=== PATIENT | male | born 1955 | race Caucasian/White ===

== ENCOUNTER 2017-05-19 15:05 | Emergency (ER) | payer OTHER ==
[2017-05-19 15:19] VITALS: BP 114/65
--- NOTE | 2017-05-19 16:30 | UC ---
HPI Wound/Suture Re-check - HPI Summary HPI Summary: This is a 61 yo gentleman with no known major medical problems who presented with a R moyer wound that he sustained ~5days ago. Patient was moving a large box that scraped his moyer and caused the wound. He has been keeping it wrapped. He reports no pain, fevers, chills or generalized illness. Patient's son inspected the wound today and noticed increasing redness and brought him here for evaluation. - History Of Current Complaint Chief Complaint: UCLowerExtremity Stated Complaint: LEG LACERATION-POSSIBLE INFECTION - Allergies/Home Medications Allergies/Adverse Reactions: Allergies Allergy/AdvReac Type Severity Reaction Status Date / Time No Known Allergies Allergy Verified 02/12/13 10:11 PMH/Surg Hx/FS Hx/Imm Hx Previously Healthy: Yes - gout - Surgical History Surgical History: Yes Surgery Procedure, Year, and Place: lump from lymph node removed - Family History Known Family History: Positive: None - Social History Alcohol Use: None Substance Use Type: None Smoking Status (MU): Never Smoked Tobacco Review of Systems Constitutional: Negative Skin: Other - laceration R moyer Eyes: Negative ENT: Negative Respiratory: Negative Cardiovascular: Negative Gastrointestinal: Negative Genitourinary: Negative Motor: Negative Neurovascular: Negative Musculoskeletal: Negative Neurological: Negative Psychological: Negative All Other Systems Reviewed And Are Negative: Yes Physical Exam Triage Information Reviewed: Yes Appearance: Well-Appearing, Other: - poor Mongolian, accompanied by his son 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 Negative: Crackles, Rhonchi, Stridor, Wheezing Cardiovascular: Positive: RRR, No Murmur Skin: Positive: Other - superficial laceration over R anterior lower leg. Some purulent appearing slough and surrounding erythema. No induration of fluctuance. Minimal surrounding pain. Course/Dx - Course Course Of Treatment: This is a 61 yo gentleman with a R moyer laceration ~5d ago. There is evidence of associated infection. Recommend Keflex x7d with daily dressing changes - Differential Dx - Laceration/Wound Differential Diagnoses: Abscess, Cellulitis Provider Diagnoses: 1. R anterior leg wound with associated cellulitis Discharge - Discharge Plan Condition: Stable Disposition: HOME Prescriptions: Cephalexin CAP* [Keflex CAP*] 500 mg PO TID #21 cap Patient Education Materials: Wound Infection (ED) Referrals: Agustin Denise MD [Primary Care Provider] - 7 Days Additional Instructions: Activity: As tolerated Instructions: 1. Please take antibiotic as directed 2. Keep the wound clean and dry, change dressing daily 3. Apply a thin layer of bacitracin to the wound and cover with dry gauze and secure 4. Please follow up with your primary care provider to ensure proper healing
== END 2017-05-19 16:30 | disposition home or self-care (01) ==
LOC: UCEAST 15:05
DX: S81.811A Laceration without foreign body, right lower leg, initial encounter (principal); L03.115 Cellulitis of right lower limb; W22.8XXA Striking against or struck by other objects, initial encounter; Y93.9 Activity, unspecified; Y92.9 Unspecified place or not applicable; Y99.9 Unspecified external cause status
CPT/HCPCS: 99202; G0463

== ENCOUNTER 2017-11-26 09:19 | Day surgery (SDC) | payer OTHER ==
--- NOTE | 2017-11-23 18:51 | HP ---
CC: Dr. Denise * HISTORY AND PHYSICAL: DATE OF PLANNED ADMISSION AND SURGERY: 11/26/17 HISTORY OF PRESENT ILLNESS: Mr. Arreaga is a 61-year-old white male who is admitted with recurrent episodes of gross hematuria and a 2 cm bladder tumor, for cystoscopy and excisional biopsy. Mr. Arreaga was referred by Dr. eDnise because of recurrent episodes of gross painless hematuria that started about 1 month ago. The episodes were totally asymptomatic, not associated with any flank pain or renal symptoms. He did not notice any changes in his voiding. He did not have any frequency, urgency or burning on urination. He was worked up with a noncontrast CT of the abdomen and pelvis, which was normal. He was then referred to my office. He had a cystoscopy, which showed a 2 cm bladder tumor arising just cephalad to the right ureteral orifice. The tumor had the appearance of a high-grade transitional cell carcinoma. To rule out any upper tract urothelial lesions, patient had a CT urogram. This study showed the bladder mass. There were no other lesions seen, in particular no hydronephrosis and no abnormal filling defects in the renal pelvises or in the ureters. The bladder mass seemed confined to the bladder without evidence of extravesical extension or lymphadenopathy. PAST MEDICAL HISTORY AND SYSTEM REVIEW: He is diabetic, maintained on metformin 500 mg twice a day. He has history of gout, on allopurinol 100 mg twice a day. He gives past history of heavy smoking of 1 to 2 packs per day for 20 years but he stopped 20 years ago. He denies any COPD symptoms. ALLERGIES: He denies any allergies to medications. PHYSICAL EXAMINATION GENERAL: Pleasant white male, who looks older than his age. VITAL SIGNS: Blood pressure 140/70, pulse of 80. LUNGS: Clear. HEART: Regular and rhythmic, no murmurs. ABDOMEN: Soft. No masses, no tenderness and no CVA tenderness. EXTERNAL GENITALIA: Normal. RECTAL: Shows a slightly enlarged but non-suspicious prostate. EXTREMITIES: Show no edema. IMPRESSION: 1. Recurrent episodes of gross painless hematuria, and a 1.5 to 2 cm tumor rising from the right base of the bladder. Normal upper tracts by CT urogram. 2. Diabetes mellitus. 3. History of gout. 4. Past history of chronic smoking. PLAN: Plan is for cystoscopy and excisional biopsy of the bladder tumor. He will need additional treatment depending upon the pathology. [id number]/[facility] #: [id number] [facility]
[~2017-11-26 09:19] MED LIST: Buffered Lidocaine 0.9% SYRIN* 5 ML/SYR SYRINGE INTRADERM ONE; Famotidine IV* 10 MG/ML 2 ML (20 mg) IV ONE
[2017-11-26] MEDS ORDERED: Famotidine IV* 10 MG/ML 2 ML (20 mg) ONE (09:29)
[2017-11-26] MEDS ORDERED: cefTRIAXone(*) 2 GM ADDV.VIAL IVPB ONE (09:29)
[2017-11-26] MEDS ORDERED: Midazolam* 1 MG/ML 2 ML VIAL (2 MG) ONE (09:40)
[2017-11-26] MEDS ORDERED: fentaNYL* 50 MCG/ML 2 ML VIAL (100 MCG VIAL) ONE (09:40)
[2017-11-26] MEDS ORDERED: Dexamethasone IV* 4 MG/ML 1 ML (4 MG) ONE (09:49)
[2017-11-26] MEDS ORDERED: Ketorolac INJ* 30 MG/ML 1 ML VIAL ONE (09:49)
[2017-11-26] MEDS ORDERED: Lidocaine 2% PF * 5 ML VIAL ONE (09:49)
[2017-11-26] MEDS ORDERED: Propofol* 10 MG/ML 20 ML BTL IV PUSH ONE (09:49)
[2017-11-26] MEDS ORDERED: Ondansetron INJ* 2 MG/ML VIAL ONE (09:49)
[2017-11-26] MEDS ORDERED: DiMENhydriNATE IV* 50 MG/ML VIAL ONE (09:49)
[2017-11-26] MEDS ORDERED: oxyCODONE TAB* 5 MG TAB PO PRN (11:31)
[2017-11-26] MEDS ORDERED: HYDROmorphone INJ* 1 MG/ML CARPUJECT SYRINGE IV PRN (11:31)
[2017-11-26] MEDS ORDERED: DiMENhydriNATE IV* 50 MG/ML VIAL IV PUSH PRN (11:31)
[2017-11-26] MEDS ORDERED: Naloxone* 0.4 MG/ML 1 ML VIAL IV PRN (11:31)
[2017-11-26] MEDS ORDERED: Acetaminophen TAB* 325 MG PO PRN (11:31)
[2017-11-26] MEDS ORDERED: mitoMYcin PWD* 40 MG in Sterile Water for Inj* 40 ML IRRIGATION ONE (12:30)
[2017-11-26 14:59] VITALS: BP 151/65
--- NOTE | 2017-11-27 00:27 | OP ---
CC: Dr. Denise OPERATIVE REPORT: DATE OF OPERATION: 11/26/16 DATE OF : 53 SURGEON: Fer Villalobos MD ANESTHESIOLOGIST: Dr. Nunez. ANESTHESIA: General. PRE-OP DIAGNOSIS: Bladder tumor. POST-OP DIAGNOSIS: Bladder tumor. OPERATIVE PROCEDURE: 1. Cystoscopy. 2. Excisional biopsies and fulguration of tumor of right base of bladder (2 cm) . INDICATION FOR PROCEDURE: Mr. Arreaga is a 61-year-old white male who gives a past history of chronic heavy smoking and who presented with recurrent episodes of total gross painless hematuria. Cystoscopy showed a 2 cm tumor in the right base of the bladder. CT urogram showed normal collecting systems and ureters. The patient is admitted for excision of the above tumor. PATHOLOGY AT CYSTOSCOPY: The penile and bulbar urethrae looked normal. The prostatic urethra measured about 2.5 cm in length and there was minimal obstruction by prostate enlargement. Examination of the bladder showed a 2 cm papillary tumor arising from the right base of the bladder just cephalad to the right ureteral orifice. There were similar small tumors adjacent to the main tumor.The orifice looked normal and was not involved by the tumor. The tumors had the appearance of a medium grade transitional cell carcinoma. Careful inspection of the rest of the bladder showed no other lesions. No other papillary tumors seen, and no changes to suggest carcinoma in situ. The efflux from both ureteral orifices was clear. DESCRIPTION OF PROCEDURE: After successful general anesthesia, the patient was placed in the lithotomy position and was prepped and draped for a cystoscopy. Cystoscopy was performed. The bladder was carefully inspected and the above findings were noted. Using the rigid biopsy forceps, the above tumors were excised down to muscle. The specimens were sent for pathology. The bed of the tumor and the surrounding tissue were thoroughly fulgurated with the Bugbee electrode achieving very good hemostasis. At the completion of the procedure, there were no residual tumor seen. There was very good hemostasis. There was no evidence of any bladder perforation. The right ureteral orifice was intact. The scope was then removed and a size 16-[place] Fox catheter was passed inside the bladder and the balloon inflated with 10 cc of water. The plan is to give the patient 1 dose of intravesical mitomycin-C in the recovery room. [id number]/[facility] #: [id number] [facility]
== END 2017-11-26 14:59 | disposition home or self-care (01) ==
LOC: OR 09:19
PROVIDERS: ATTEND Urology
DX: C67.9 Malignant neoplasm of bladder, unspecified (principal); E11.9 Type 2 diabetes mellitus without complications; Z79.84 Long term (current) use of oral hypoglycemic drugs; Z87.891 Personal history of nicotine dependence; R31.9 Hematuria, unspecified
CPT/HCPCS: 88305; J0696; J1100; J1240; J1885; J2250; J2405; J2704; J3010; J9280

== ENCOUNTER 2018-12-10 20:33 | Emergency (ER) | payer OTHER ==
[2018-12-10 20:50] VITALS: BP 146/65
[2018-12-10] MEDS ORDERED: Ibuprofen TAB* 600 MG PO ONE (21:02)
--- NOTE | 2018-12-10 21:06 | UC ---
FLU HPI - HPI Summary HPI Summary: 2 DAYS OF COUGH, CONGESTION, FATIGUE, BODY ACHES AND WEAKNESS. HAD SOME MILD NAUSEA THIS MORNING. FOUND TO HAVE A FEVER IN THE UC BUT PATIENT DID NOT MEASURE HIS TEMPERATURE AT HOME. NO FLU SHOT THIS SEASON. - History of Current Complaint Chief Complaint: UCRespiratory Stated Complaint: COUGH Time Seen by Provider: 12/10/18 20:42 Hx Obtained From: Patient Onset/Duration: Gradual Onset, Lasting Days, Still Present Severity Currently: Moderate Severity Initially: Moderate Pain Intensity: 0 Pain Scale Used: 0-10 Numeric Associated Signs & Symptoms: Positive: Fever, Myalgia, Cough, Nasal Congestion - Allergy/Home Medications Allergies/Adverse Reactions: Allergies Allergy/AdvReac Type Severity Reaction Status Date / Time No Known Allergies Allergy Verified 11/26/17 09:54 Home Medications: Home Medications Gabapentin [Neurontin] 12/10/18 [History] PMH/Surg Hx/FS Hx/Imm Hx - Additional Past Medical History Additional PMH: TRIGEMINAL NEURALGIA Endocrine History: Diabetes - Surgical History Surgical History: None Surgery Procedure, Year, and Place: lump from lymph node removed - Family History Known Family History: Positive: None - Social History Alcohol Use: None Substance Use Type: None Smoking Status (MU): Never Smoked Tobacco Amount Used/How Often: 1ppd When Did the Patient Quit Smoking/Using Tobacco: quit 32 years ago Review of Systems All Other Systems Reviewed And Are Negative: Yes Constitutional: Positive: Fever, Chills, Fatigue ENT: Positive: Nasal Discharge Respiratory: Positive: Cough Cardiovascular: Positive: Negative Gastrointestinal: Positive: Nausea Musculoskeletal: Positive: Myalgia Neurological: Negative: Headache Physical Exam Triage Information Reviewed: Yes Appearance: No Pain Distress, Well-Nourished, Ill-Appearing - MILD Vital Signs: Initial Vital Signs Temp 101.2 F 12/10/18 20:40 Pulse 82 12/10/18 20:40 Resp 16 12/10/18 20:40 BP 146/65 12/10/18 20:40 Pulse Ox 96 12/10/18 20:40 Laboratory Tests 12/10/18 21:09 Influenza A (Rapid) Positive A Vital Signs Reviewed: Yes Eyes: Positive: Conjunctiva Clear ENT: Positive: Hearing grossly normal, Pharynx normal, TMs normal Neck: Positive: Supple, Nontender, No Lymphadenopathy Respiratory Exam: Normal Cardiovascular Exam: Normal Abdomen Description: Positive: Nontender, Soft Musculoskeletal: Positive: No Edema Neurological: Positive: Alert Psychological: Positive: Age Appropriate Behavior Skin: Negative: Rashes Flu Course/Dx - Differential Dx/Diagnosis Provider Diagnosis: Influenza A Discharge - Sign-Out/Discharge Documenting (check all that apply): Patient Departure All imaging exams completed and their final reports reviewed: No Studies - Discharge Plan Condition: Stable Disposition: HOME Prescriptions: Benzonatate CAP* [Tessalon CAP*] 1 - 2 cap PO TID PRN #30 cap PRN Reason: Cough Oseltamivir CAP* [Tamiflu CAP*] 75 mg PO BID #8 cap Patient Education Materials: Influenza (ED) Referrals: Agustin Denise MD [Primary Care Provider] - If Needed Additional Instructions: SWAB POSITIVE FOR INFLUENZA A. TAMIFLU TWICE DAILY FOR 5 DAYS. OTC MEDS NEEDED FOR FEVER, BODY ACHES. STAY WELL HYDRATED AND RESTED. SEEK FOLLOW-UP IF YOU ARE NOT IMPROVING EXPECTED. - Billing Disposition and Condition Condition: STABLE Disposition: Home
[2018-12-10 21:14] LABS: Influenza A Molecular POSITIVE (Negative)
[2018-12-10] MEDS ORDERED: Oseltamivir CAP* 75 MG CAP PO ONE ×2 (21:20→21:21)
== END 2018-12-10 21:49 | disposition home or self-care (01) ==
LOC: UCEAST 20:33
DX: J10.1 Influenza due to other identified influenza virus with other respiratory manifestations (principal); Z87.891 Personal history of nicotine dependence
CPT/HCPCS: 99213; A9270-GY; G0463

== ENCOUNTER 2019-02-26 13:16 | Emergency (ER) | payer OTHER ==
[2019-02-26 14:22] VITALS: BP 166/70
[2019-02-26] MEDS ORDERED: Ketorolac INJ* 60 MG/2 ML VIAL IM ONE (14:55)
--- NOTE | 2019-02-26 15:04 | UC ---
General HPI - HPI Summary HPI Summary: Patient had recent dental work and has had nerve pain along the left upper jaw line and cheek since the procedure. he was placed on gabapentin 300 mg tid and had begun to decrease the dose when the pain returned, he was advised to return to TID 2 days ago. 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 bladder ca surgery - Family History Known Family History: Positive: Hypertension - Social History Alcohol Use: None Substance Use Type: None Smoking Status (MU): Never Smoked Tobacco Amount Used/How Often: 1ppd When Did the Patient Quit Smoking/Using Tobacco: quit 32 years ago Review of Systems All Other Systems Reviewed And Are Negative: Yes ENT: Positive: Dental Pain, Other - facial pain Is Patient Immunocompromised?: No Physical Exam Triage Information Reviewed: Yes Appearance: Well-Appearing, Well-Nourished, Pain Distress Vital Signs: Initial Vital Signs Temp 99.1 F 02/26/19 14:04 Pulse 62 02/26/19 14:04 Resp 18 02/26/19 14:04 BP 166/70 02/26/19 14:04 Pulse Ox 97 02/26/19 14:04 Vital Signs Reviewed: Yes ENT: Positive: Dental tenderness, Sinus tenderness Dental: Positive: Other: - painful to open mouth, unable to chew Neck exam: Normal Respiratory Exam: Normal Cardiovascular Exam: Normal Abdominal Exam: Normal Bowel Sounds: Positive: Present Musculoskeletal Exam: Normal Neurological: Positive: Other: - sensitive to light touch on left side of face Psychological Exam: Normal Skin Exam: Normal Course/Dx - Course Course Of Treatment: hx obtained, exam performed ,meds reviewed, treated for pain and recommend follow up with his PCP - Diagnoses 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 take the medication as prescribed. 2. Continue to take the gabapentin three times a day 3. Do not take any ibuprofen products for the next 8 hours. 4. I have given [place] for sever pain to get the pain back under control 5. Take the prednisone daily for the next 5 days 6. Follow up with your doctor if pain persists. - Billing Disposition and Condition Condition: STABLE Disposition: Home
== END 2019-02-26 15:31 | disposition home or self-care (01) ==
LOC: UCEAST 13:16
DX: T81.89XA Other complications of procedures, not elsewhere classified, initial encounter (principal); G51.8 Other disorders of facial nerve; Y83.9 Surgical procedure, unspecified as the cause of abnormal reaction of the patient, or of later complication, without mention of misadventure at the time of the procedure; Y92.9 Unspecified place or not applicable
CPT/HCPCS: 96372; 99212; G0463; J1885

== ENCOUNTER 2019-05-12 18:14 | Emergency (ER) | payer OTHER ==
[2019-05-12 19:31] VITALS: BP 151/68
--- NOTE | 2019-05-12 19:46 | UC ---
Back Pain HPI - HPI Summary HPI Summary: 63-year-old male with some left lower back pain and into his left buttock and down his leg. He states that he was lifting something today and he felt pole. He does have a history of sciatica. - History of Current Complaint Chief Complaint: UCBackPain Stated Complaint: BACK PAIN Time Seen by Provider: 05/12/19 19:38 Hx Obtained From: Patient, Family/Athletics Director Onset/Duration: Sudden Onset Timing: Constant Severity Initially: Moderate Severity Currently: Mild Pain Intensity: 8 Character: Sharp - Goes from left lower back down into buttock and left leg., Dull, Aching Aggravating Factor(s): Movement, Lifting, Bending Alleviating Factor(s): Rest Associated Signs And Symptoms: Positive: Negative - Allergies/Home Medications Allergies/Adverse Reactions: Allergies Allergy/AdvReac Type Severity Reaction Status Date / Time No Known Allergies Allergy Verified 05/12/19 19:24 PMH/Surg Hx/FS Hx/Imm Hx Previously Healthy: Yes Endocrine History: Diabetes Respiratory History: Asthma - Surgical History Surgical History: Yes Surgery Procedure, Year, and Place: lump from lymph node removed. bladder ca surgery - Family History Known Family History: Positive: Hypertension - Social History Alcohol Use: None Substance Use Type: None Smoking Status (MU): Former Smoker Amount Used/How Often: 1ppd When Did the Patient Quit Smoking/Using Tobacco: quit 32 years ago Review of Systems All Other Systems Reviewed And Are Negative: Yes Motor: Positive: Negative Neurovascular: Positive: Negative Musculoskeletal: Positive: Negative, Other: - Patient states the pain is in his left lower back into his buttock and radiates down his leg. Neurological: Positive: Negative Psychological: Positive: Negative Is Patient Immunocompromised?: No Physical Exam Triage Information Reviewed: Yes Appearance: Well-Appearing, No Pain Distress, Well-Nourished Vital Signs: Initial Vital Signs Temp 97.8 F 05/12/19 19:18 Pulse 63 05/12/19 19:18 Resp 18 05/12/19 19:18 BP 151/68 05/12/19 19:18 Pulse Ox 96 05/12/19 19:18 Vital Signs Reviewed: Yes Respiratory: Positive: Lungs clear, Normal breath sounds, No respiratory distress, No accessory muscle use Cardiovascular: Positive: RRR, No Murmur, Pulses Normal, Brisk Capillary Refill Abdomen Description: Positive: Nontender, No Organomegaly, Soft Bowel Sounds: Positive: Present Musculoskeletal: Positive: Strength Intact, ROM Intact, Other: - Positive straight leg raise on the left. Neurological: Positive: Alert, Muscle Tone Normal Psychological Exam: Normal Skin Exam: Normal Back Pain Course/Dx - Course Course Of Treatment: The patient has a history of sciatica and I believe due to his lifting an object in feeling the pain he has sciatica again. He is to avoid movements that cause pain. He may take Motrin for pain and he may apply ice or heat to the sore area. He is to follow-up with his primary care provider if no improvement in 3 or 4 days. - Differential Dx/Diagnosis Provider Diagnosis: Left sided sciatica Discharge - Sign-Out/Discharge Documenting (check all that apply): Patient Departure All imaging exams completed and their final reports reviewed: No Studies - Discharge Plan Condition: Fair Disposition: HOME Patient Education Materials: Sciatica (ED), Upper Respiratory Infection (DC) Referrals: Agustin Denise MD [Primary Care Provider] - Additional Instructions: Apply heat or ice to the sore areas. May take Motrin for pain. Avoid movements that cause pain. Follow-up with your primary care provider if no improvement in 3 or 4 days. - Billing Disposition and Condition Condition: FAIR Disposition: Home
== END 2019-05-12 20:41 | disposition home or self-care (01) ==
LOC: UCEAST 18:14
DX: M54.42 Lumbago with sciatica, left side (principal); E11.9 Type 2 diabetes mellitus without complications; J45.909 Unspecified asthma, uncomplicated; Z87.891 Personal history of nicotine dependence; Z85.51 Personal history of malignant neoplasm of bladder
CPT/HCPCS: 71046; 99212; G0463

== ENCOUNTER 2023-07-20 18:59 | Inpatient (IN) ==
[2023-07-20 19:57] LABS: PCO2 Arterial 42 mmHg (35-45); PO2 Arterial 82 mmHg (80-100)
[2023-07-20] MEDS ORDERED: Dexamethasone IV 4 MG/ML VIAL 1 ml VIAL IV SLOW PU ONE (19:59)
[2023-07-20 20:02] LABS: ABS Lymphocytes 0.2 10^3/uL (1.0-4.8); ABS Monocytes 0.5 10^3/uL (0.0-1.1); ABS Neutrophils 8.8 10^3/uL (1.5-7.6); ABS Nucleated RBC 0.01 10^3/ul; Hematocrit 33.8 % (38-53); Hemoglobin 11.6 g/dL (13.2-16.3); Lymphocyte % 2.2 %; Mean Corpuscular Hemoglobin 28.4 pg (27-33); Mean Corpuscular Hgb Conc 34.2 g/dL (31-36); Mean Platelet Volume 8.6 fL (7.5-11.2); Nucleated Red Blood Cells % 0.1 /100 WBC (0.0-0.4); Platelet Count 239 10^3/uL (150-450); Red Blood Count 4.07 10^6/uL (4.06-5.63); Red Cell Distribution Width 15.1 % (12-17); White Blood Count 9.6 10^3/uL (3.6-10.2)
[2023-07-20 20:24] LABS: Albumin 3.9 g/dL (3.2-5.2); Calcium 8.5 mg/dL (8.6-10.3); Potassium 4.2 mmol/L (3.5-5.0); Total Bilirubin 0.5 mg/dL (0.2-1.0)
[2023-07-20 20:30] LABS: Albumin/Globulin Ratio 1.3 (1-3); C Reactive Protein 50.68 mg/L (<8.01); Creatinine, Serum 1.09 mg/dL (0.67-1.17); Globulin 2.9 g/dL (2-4); Total Protein 6.8 g/dL (6.4-8.9); eGFR CKD-EPI 73.9 (>60)
[2023-07-20] MEDS ORDERED: Iodixanol (CONTRAST) 320 MG/ML 100 ML SDV IV ONE (20:57)
[2023-07-20 21:14] LABS: INR 1.15 (0.83-1.13)
[2023-07-20 21:34] LABS: High Sensitivity Troponin 1 Hr 2415 pg/mL (<20)
[2023-07-20] MEDS ORDERED: Heparin DRIP 25,000 UNITS BAG 25,000 UNITS/500 ML BAG IV SCH (23:00)
[2023-07-20] MEDS ORDERED: Heparin 5000 UNITS/ML 1 mL VIAL IV SCH (23:00)
[2023-07-20] MEDS ORDERED: Remdesivir 100 mg Vial 200 MG in NS 0.9% 250 ml 210 ML IV ONE (23:52)
[2023-07-20] MEDS ORDERED: Ondansetron 4 mg VIAL 2 MG/ML 2 ml VIAL IV PRN (23:52)
[2023-07-20] MEDS ORDERED: Dextrose 50% Syringe 50 ml 25 GM/50 ML SYRINGE IV PUSH PRN ×2 (23:52)
[2023-07-21 00:27] LABS: INR 1.17 (0.83-1.13)
[2023-07-21 00:35] LABS: Albumin 3.8 g/dL (3.2-5.2); Calcium 8.5 mg/dL (8.6-10.3); Potassium 4.7 mmol/L (3.5-5.0); Total Bilirubin 0.4 mg/dL (0.2-1.0)
[2023-07-21 00:41] LABS: Albumin/Globulin Ratio 1.3 (1-3); Creatinine, Serum 1.09 mg/dL (0.67-1.17); Total Protein 6.8 g/dL (6.4-8.9); eGFR CKD-EPI 73.9 (>60)
[2023-07-21] MEDS ORDERED: Enoxaparin 80 MG/0.8 ML SYR SUBCUT SCH (01:00)
[2023-07-21 04:46] LABS: ABS Lymphocytes 0.4 10^3/uL (1.0-4.8); ABS Monocytes 0.5 10^3/uL (0.0-1.1); ABS Neutrophils 8.5 10^3/uL (1.5-7.6); ABS Nucleated RBC 0.01 10^3/ul; Hematocrit 33.1 % (38-53); Hemoglobin 11.5 g/dL (13.2-16.3); Mean Corpuscular Hemoglobin 28.5 pg (27-33); Mean Corpuscular Hgb Conc 34.6 g/dL (31-36); Mean Corpuscular Volume 82.3 fL (80-97); Mean Platelet Volume 8.8 fL (7.5-11.2); Nucleated Red Blood Cells % 0.1 /100 WBC (0.0-0.4); Platelet Count 221 10^3/uL (150-450); Red Blood Count 4.03 10^6/uL (4.06-5.63); Red Cell Distribution Width 14.8 % (12-17); White Blood Count 9.4 10^3/uL (3.6-10.2)
[2023-07-21 04:47] LABS: Urine Appearance Cloudy; Urine Bilirubin Negative (Negative); Urine Blood 2+ (Negative); Urine Color Yellow; Urine Glucose Negative (Negative); Urine Ketones Negative (Negative); Urine Nitrite Negative (Negative); Urine Protein 2+(100 mg/dL) (Negative); Urine Specific Gravity 1.048 (1.002-1.030); Urine Urobilinogen Negative (Negative)
[2023-07-21 04:51] LABS: INR 1.18 (0.83-1.13)
[2023-07-21 04:52] LABS: Urine Bacteria Absent (Absent); Urine Red Blood Cell 1+(3-5/hpf) (Absent); Urine White Blood Cell Trace(0-5/hpf) (Absent); Urine Yeast Present (Absent)
[2023-07-21 05:04] LABS: Albumin 3.5 g/dL (3.2-5.2); Albumin/Globulin Ratio 1.2 (1-3); Calcium 8.1 mg/dL (8.6-10.3); Creatinine, Serum 1.02 mg/dL (0.67-1.17); Globulin 2.9 g/dL (2-4); Magnesium 1.8 mg/dL (1.9-2.7); Potassium 4.7 mmol/L (3.5-5.0); Total Bilirubin 0.3 mg/dL (0.2-1.0); Total Protein 6.4 g/dL (6.4-8.9); eGFR CKD-EPI 80.1 (>60)
[2023-07-21] MEDS ORDERED: Magnesium Sulfate IV 1GM/100ML 1 GM/100 ML BAG IV ONE ×2 (05:48→06:38)
[2023-07-21 07:34] LABS: High Sensitivity Troponin 1 Hr 5894 pg/mL (<20)
[2023-07-21] MEDS: Dexamethasone IV 4 MG/ML VIAL 1 ml VIAL IV SLOW PU SCH (08:51)
[2023-07-21] MEDS ORDERED: Sulfur Hexaflouride MICROSPHR 25 MG VIAL ONE (08:51)
[2023-07-21] MEDS: Aspirin EC 81 mg TAB.EC (enteric coated) PO SCH (09:18)
[2023-07-21] MEDS: carBAMazepine ER 100mg TAB PO SCH ×2 (09:19→21:08)
[2023-07-21] MEDS: Famotidine IV 10 MG/ML 2 ml VIAL (20 mg) IV SLOW PU SCH ×2 (11:14→21:09)
[2023-07-21] MEDS ORDERED: Enoxaparin 100 MG/ML SYR SUBCUT SCH (18:00)
[2023-07-21] MEDS: Remdesivir 100 mg Vial 100 MG in NS 0.9% 250 ml 230 ML IV SCH (21:50)
[2023-07-22 06:51] LABS: Hematocrit 33.7 % (38-53); Hemoglobin 11.3 g/dL (13.2-16.3); Mean Corpuscular Hemoglobin 28.2 pg (27-33); Mean Corpuscular Hgb Conc 33.7 g/dL (31-36); Mean Corpuscular Volume 83.7 fL (80-97); Mean Platelet Volume 8.8 fL (7.5-11.2); Platelet Count 224 10^3/uL (150-450); Red Blood Count 4.02 10^6/uL (4.06-5.63); White Blood Count 10.2 10^3/uL (3.6-10.2)
[2023-07-22 06:53] LABS: INR 1.12 (0.83-1.13)
[2023-07-22 07:06] LABS: Albumin 3.8 g/dL (3.2-5.2); Albumin/Globulin Ratio 1.4 (1-3); Calcium 8.5 mg/dL (8.6-10.3); Creatinine, Serum 0.93 mg/dL (0.67-1.17); Globulin 2.8 g/dL (2-4); HDL Cholesterol 50.4 mg/dL; Potassium 4.2 mmol/L (3.5-5.0); Total Bilirubin 0.3 mg/dL (0.2-1.0); Total Protein 6.6 g/dL (6.4-8.9); eGFR CKD-EPI 89.4 (>60)
[2023-07-22] MEDS: Aspirin EC 81 mg TAB.EC (enteric coated) PO SCH (08:56)
[2023-07-22] MEDS: Dexamethasone IV 4 MG/ML VIAL 1 ml VIAL IV SLOW PU SCH (08:58)
[2023-07-22] MEDS: carBAMazepine ER 100mg TAB PO SCH ×2 (08:59→21:30)
[2023-07-22] MEDS: Famotidine IV 10 MG/ML 2 ml VIAL (20 mg) IV SLOW PU SCH (08:59)
[2023-07-22] MEDS ORDERED: Lactated Ringers 1000 ml BAG 1,000 ML IV SCH (09:00)
[2023-07-22] MEDS ORDERED: Influenza vaccine *QUAD* *2023-24* 0.5 ML SYRINGE IM ONE (09:00)
[2023-07-22] MEDS: Lactated Ringers 1000 ml BAG 1,000 ML IV SCH ×2 (09:06→17:47)
[2023-07-22 09:17] LABS: Magnesium 2.2 mg/dL (1.9-2.7)
[2023-07-22] MEDS ORDERED: Enoxaparin 100 MG/ML SYR SUBCUT ONE (12:46)
[2023-07-22] MEDS ORDERED: Heparin DRIP 25,000 UNITS BAG 25,000 UNITS/500 ML BAG IV SCH (13:00)
[2023-07-22 14:27] LABS: ABS Lymphocytes 0.3 10^3/uL (1.0-4.8); ABS Monocytes 0.3 10^3/uL (0.0-1.1); ABS Neutrophils 8.2 10^3/uL (1.5-7.6); Hematocrit 33.7 % (38-53); Hemoglobin 11.4 g/dL (13.2-16.3); Lymphocyte % 3.1 %; Mean Corpuscular Hemoglobin 28.3 pg (27-33); Mean Corpuscular Hgb Conc 33.7 g/dL (31-36); Mean Corpuscular Volume 83.8 fL (80-97); Mean Platelet Volume 8.9 fL (7.5-11.2); Platelet Count 231 10^3/uL (150-450); Red Blood Count 4.02 10^6/uL (4.06-5.63); White Blood Count 8.8 10^3/uL (3.6-10.2)
[2023-07-22 14:44] LABS: Creatinine, Serum 1.04 mg/dL (0.67-1.17); eGFR CKD-EPI 78.2 (>60)
[2023-07-22] MEDS: Remdesivir 100 mg Vial 100 MG in NS 0.9% 250 ml 230 ML IV SCH (21:41)
[2023-07-23 07:03] LABS: ABS Eosinophils 0.1 10^3/uL (0.0-0.5); ABS Lymphocytes 0.7 10^3/uL (1.0-4.8); ABS Monocytes 0.5 10^3/uL (0.0-1.1); ABS Neutrophils 4.3 10^3/uL (1.5-7.6); ABS Nucleated RBC 0.01 10^3/ul; Eosinophil % 1.2 %; Hematocrit 30.8 % (38-53); Hemoglobin 10.6 g/dL (13.2-16.3); Lymphocyte % 13.2 %; Mean Corpuscular Hemoglobin 28.5 pg (27-33); Mean Corpuscular Hgb Conc 34.3 g/dL (31-36); Mean Corpuscular Volume 83.1 fL (80-97); Mean Platelet Volume 8.9 fL (7.5-11.2); Nucleated Red Blood Cells % 0.2 /100 WBC (0.0-0.4); Platelet Count 201 10^3/uL (150-450); White Blood Count 5.6 10^3/uL (3.6-10.2)
[2023-07-23 07:13] LABS: Activated Partial Thrombo Time 46.8 seconds (26.0-38.0); Albumin 3.3 g/dL (3.2-5.2); Albumin/Globulin Ratio 1.2 (1-3); Calcium 7.7 mg/dL (8.6-10.3); Creatinine, Serum 0.89 mg/dL (0.67-1.17); Globulin 2.7 g/dL (2-4); INR 1.12 (0.83-1.13); Total Bilirubin 0.3 mg/dL (0.2-1.0); eGFR CKD-EPI 93.3 (>60)
[2023-07-23] MEDS: Aspirin EC 81 mg TAB.EC (enteric coated) PO SCH (07:36)
[2023-07-23] MEDS: carBAMazepine ER 100mg TAB PO SCH ×2 (07:36→22:05)
[2023-07-23] MEDS: Dexamethasone IV 4 MG/ML VIAL 1 ml VIAL IV SLOW PU SCH (07:36)
[2023-07-23] MEDS ORDERED: Lactated Ringers 1000 ml BAG 1,000 ML IV SCH (08:36)
[2023-07-23] MEDS: Heparin 5000 UNITS/ML 1 mL VIAL SUBCUT SCH ×2 (14:32→22:06)
[2023-07-23] MEDS: Remdesivir 100 mg Vial 100 MG in NS 0.9% 250 ml 230 ML IV SCH (21:49)
[2023-07-24] MEDS: Heparin 5000 UNITS/ML 1 mL VIAL SUBCUT SCH ×3 (06:17→22:47)
[2023-07-24 06:41] LABS: INR 1.12 (0.83-1.13)
[2023-07-24 06:54] LABS: Albumin 3.4 g/dL (3.2-5.2); Albumin/Globulin Ratio 1.2 (1-3); Calcium 7.8 mg/dL (8.6-10.3); Creatinine, Serum 0.82 mg/dL (0.67-1.17); Globulin 2.8 g/dL (2-4); Potassium 3.8 mmol/L (3.5-5.0); Total Bilirubin 0.3 mg/dL (0.2-1.0); Total Protein 6.2 g/dL (6.4-8.9); eGFR CKD-EPI 95.7 (>60)
[2023-07-24] MEDS: Aspirin EC 81 mg TAB.EC (enteric coated) PO SCH (11:03)
[2023-07-24] MEDS: carBAMazepine ER 100mg TAB PO SCH ×2 (11:07→22:46)
[2023-07-24] MEDS: Dexamethasone IV 4 MG/ML VIAL 1 ml VIAL IV SLOW PU SCH (11:07)
[2023-07-24] MEDS ORDERED: Potassium Chlor 20 meq TAB.ER PO ONE (12:00)
[2023-07-24] MEDS: Remdesivir 100 mg Vial 100 MG in NS 0.9% 250 ml 230 ML IV SCH (22:39)
[2023-07-25] MEDS: Heparin 5000 UNITS/ML 1 mL VIAL SUBCUT SCH ×3 (06:38→21:12)
[2023-07-25 06:48] LABS: INR 1.05 (0.83-1.13)
[2023-07-25 06:57] LABS: Albumin 3.5 g/dL (3.2-5.2); Albumin/Globulin Ratio 1.1 (1-3); Calcium 8.5 mg/dL (8.6-10.3); Creatinine, Serum 0.85 mg/dL (0.67-1.17); Globulin 3.2 g/dL (2-4); Potassium 4.2 mmol/L (3.5-5.0); Total Bilirubin 0.3 mg/dL (0.2-1.0); Total Protein 6.7 g/dL (6.4-8.9); eGFR CKD-EPI 94.6 (>60)
[2023-07-25] MEDS: Dexamethasone IV 4 MG/ML VIAL 1 ml VIAL IV SLOW PU SCH (09:14)
[2023-07-25] MEDS: Aspirin EC 81 mg TAB.EC (enteric coated) PO SCH (09:14)
[2023-07-25] MEDS: carBAMazepine ER 100mg TAB PO SCH ×2 (09:15→20:23)
[2023-07-25] MEDS: Remdesivir 100 mg Vial 100 MG in NS 0.9% 250 ml 230 ML IV SCH (21:17)
[2023-07-26] MEDS: Heparin 5000 UNITS/ML 1 mL VIAL SUBCUT SCH ×3 (05:58→22:20)
[2023-07-26 07:40] LABS: Calcium 8.5 mg/dL (8.6-10.3); Creatinine, Serum 0.96 mg/dL (0.67-1.17); Potassium 4.2 mmol/L (3.5-5.0); eGFR CKD-EPI 86.1 (>60)
[2023-07-26] MEDS ORDERED: Al Hydrox/Mg Hydrox/Simet LIQ 30 ML UDC PO ONE (09:30)
[2023-07-26] MEDS: Dexamethasone IV 4 MG/ML VIAL 1 ml VIAL IV SLOW PU SCH (11:32)
[2023-07-26] MEDS: carBAMazepine ER 100mg TAB PO SCH ×2 (11:33→22:19)
[2023-07-26] MEDS: Aspirin EC 81 mg TAB.EC (enteric coated) PO SCH (11:33)
[2023-07-26] MEDS: Ammonium Lactate 12% 1 APPLIC TUBE TOPICAL SCH (22:19)
[2023-07-27] MEDS: Heparin 5000 UNITS/ML 1 mL VIAL SUBCUT SCH ×3 (06:11→22:00)
[2023-07-27 06:43] LABS: Hematocrit 38.3 % (38-53); Hemoglobin 12.8 g/dL (13.2-16.3); Mean Corpuscular Hemoglobin 27.7 pg (27-33); Mean Corpuscular Hgb Conc 33.3 g/dL (31-36); Mean Corpuscular Volume 83.3 fL (80-97); Mean Platelet Volume 8.4 fL (7.5-11.2); Platelet Count 302 10^3/uL (150-450); Red Cell Distribution Width 14.9 % (12-17); White Blood Count 7.4 10^3/uL (3.6-10.2)
[2023-07-27] MEDS ORDERED: NS 0.9% 1000 ml BAG 1,000 ML IV SCH ×2 (07:00→15:15)
[2023-07-27 07:02] LABS: Calcium 9.2 mg/dL (8.6-10.3); Creatinine, Serum 1.02 mg/dL (0.67-1.17); Potassium 4.6 mmol/L (3.5-5.0); eGFR CKD-EPI 80.1 (>60)
[2023-07-27 08:19] LABS: RBC Morphology Normal (Normal)
[2023-07-27 08:20] LABS: ABS Eosinophils 0.1 10^3/uL (0.0-0.5); ABS Lymphocytes 1.4 10^3/uL (1.0-4.8); ABS Monocytes 0.5 10^3/uL (0.0-1.1); ABS Neutrophils 5.3 10^3/uL (1.5-7.6); ABS Nucleated RBC 0.01 10^3/ul; Eosinophil % 1.8 %; Nucleated Red Blood Cells % 0.1 /100 WBC (0.0-0.4)
[2023-07-27] MEDS: Ammonium Lactate 12% 1 APPLIC TUBE TOPICAL SCH ×2 (10:55→22:08)
[2023-07-27] MEDS: Dexamethasone IV 4 MG/ML VIAL 1 ml VIAL IV SLOW PU SCH (11:03)
[2023-07-27] MEDS: carBAMazepine ER 100mg TAB PO SCH (11:04)
[2023-07-27] MEDS: Aspirin EC 81 mg TAB.EC (enteric coated) PO SCH (11:05)
[2023-07-27] MEDS ORDERED: fentaNYL 100 mcg/2 ml 50 MCG/ML VIAL ONE (13:04)
[2023-07-27] MEDS ORDERED: VERAPAMIL 2.5 MG/ML 2 ML VIAL ** 5 mg/2 ml ONE (13:04)
[2023-07-27] MEDS ORDERED: Midazolam 5 mg/5 ml VIAL 1 mg/ml 5 ml VIAL (5 mg) ONE (13:04)
[2023-07-27] MEDS ORDERED: Heparin 1,000 UNIT/ML 10 ml (10,000 UNITS) CATHLAB/DIALYSIS ONE (13:04)
[2023-07-27] MEDS ORDERED: Iohexol 350 (CONTRAST) 200 ML MDV IV ONE (13:05)
[2023-07-27] MEDS ORDERED: nitroGLYCERIN DRIP 25,000 MCG/250 ML BTL ONE (13:05)
[2023-07-27] MEDS ORDERED: Lidocaine 1% MPF 5 ML VIAL ONE (13:05)
[2023-07-27] MEDS ORDERED: Heparin 2 UNITS/ML 1000 mls 2,000 ML IV ONE (13:05)
[2023-07-27] MEDS ORDERED: Bivalirudin 250 MG VIAL ONE (14:18)
[2023-07-28] MEDS: carBAMazepine ER 100mg TAB PO SCH ×3 (00:40→22:53)
[2023-07-28 00:49] LABS: Hematocrit 35.5 % (38-53); Hemoglobin 12.2 g/dL (13.2-16.3); Mean Corpuscular Hemoglobin 28.2 pg (27-33); Mean Corpuscular Hgb Conc 34.4 g/dL (31-36); Mean Platelet Volume 8.4 fL (7.5-11.2); Platelet Count 301 10^3/uL (150-450); Red Blood Count 4.34 10^6/uL (4.06-5.63)
[2023-07-28 01:00] LABS: ABS Eosinophils 0.1 10^3/uL (0.0-0.5); ABS Lymphocytes 0.8 10^3/uL (1.0-4.8); ABS Monocytes 0.6 10^3/uL (0.0-1.1); ABS Neutrophils 6.5 10^3/uL (1.5-7.6); Eosinophil % 0.8 %; Lymphocyte % 10.3 %; Nucleated Red Blood Cells % 0.1 /100 WBC (0.0-0.4)
[2023-07-28 05:03] LABS: Hematocrit 35.6 % (38-53); Hemoglobin 12.4 g/dL (13.2-16.3); Mean Corpuscular Hemoglobin 28.5 pg (27-33); Mean Corpuscular Hgb Conc 34.7 g/dL (31-36); Mean Platelet Volume 8.6 fL (7.5-11.2); Platelet Count 308 10^3/uL (150-450); Red Blood Count 4.34 10^6/uL (4.06-5.63); Red Cell Distribution Width 14.8 % (12-17); White Blood Count 8.9 10^3/uL (3.6-10.2)
[2023-07-28 05:07] LABS: ABS Basophils 0.1 10^3/uL (0.0-0.1); ABS Eosinophils 0.1 10^3/uL (0.0-0.5); ABS Lymphocytes 1.2 10^3/uL (1.0-4.8); ABS Monocytes 0.6 10^3/uL (0.0-1.1); ABS Neutrophils 7.1 10^3/uL (1.5-7.6); ABS Nucleated RBC 0.01 10^3/ul; Eosinophil % 1.1 %; Lymphocyte % 13.1 %; Nucleated Red Blood Cells % 0.1 /100 WBC (0.0-0.4)
[2023-07-28] MEDS: Heparin 5000 UNITS/ML 1 mL VIAL SUBCUT SCH ×3 (06:48→22:54)
[2023-07-28 08:18] LABS: Calcium 9.2 mg/dL (8.6-10.3); Creatinine, Serum 0.95 mg/dL (0.67-1.17); Magnesium 2.2 mg/dL (1.9-2.7); Potassium 4.6 mmol/L (3.5-5.0); eGFR CKD-EPI 87.2 (>60)
[2023-07-28] MEDS: Dexamethasone IV 4 MG/ML VIAL 1 ml VIAL IV SLOW PU SCH (08:31)
[2023-07-28] MEDS: Ammonium Lactate 12% 1 APPLIC TUBE TOPICAL SCH ×2 (08:33→22:54)
[2023-07-29 05:33] LABS: Calcium 9.5 mg/dL (8.6-10.3); Creatinine, Serum 0.96 mg/dL (0.67-1.17); Magnesium 2.3 mg/dL (1.9-2.7); Potassium 4.5 mmol/L (3.5-5.0); eGFR CKD-EPI 86.1 (>60)
[2023-07-29] MEDS: Heparin 5000 UNITS/ML 1 mL VIAL SUBCUT SCH ×3 (05:40→21:23)
[2023-07-29] MEDS: carBAMazepine ER 100mg TAB PO SCH ×2 (08:19→21:32)
[2023-07-29] MEDS: Dexamethasone IV 4 MG/ML VIAL 1 ml VIAL IV SLOW PU SCH (08:20)
[2023-07-29] MEDS: Ammonium Lactate 12% 1 APPLIC TUBE TOPICAL SCH ×2 (08:32→21:28)
[2023-07-30] MEDS: Heparin 5000 UNITS/ML 1 mL VIAL SUBCUT SCH ×3 (04:51→21:15)
[2023-07-30 05:34] LABS: Creatinine, Serum 1.17 mg/dL (0.67-1.17); Magnesium 2.3 mg/dL (1.9-2.7); Potassium 4.5 mmol/L (3.5-5.0); eGFR CKD-EPI 67.9 (>60)
[2023-07-30] MEDS: Ammonium Lactate 12% 1 APPLIC TUBE TOPICAL SCH ×2 (08:48→21:47)
[2023-07-30] MEDS: Dexamethasone IV 4 MG/ML VIAL 1 ml VIAL IV SLOW PU SCH (08:48)
[2023-07-30] MEDS: carBAMazepine ER 100mg TAB PO SCH ×2 (08:52→21:14)
[2023-07-31 04:40] LABS: Hematocrit 37.5 % (38-53); Hemoglobin 12.8 g/dL (13.2-16.3); Mean Corpuscular Hemoglobin 28.4 pg (27-33); Mean Corpuscular Hgb Conc 34.1 g/dL (31-36); Mean Corpuscular Volume 83.4 fL (80-97); Mean Platelet Volume 8.5 fL (7.5-11.2); Platelet Count 277 10^3/uL (150-450); White Blood Count 9.4 10^3/uL (3.6-10.2)
[2023-07-31 04:58] LABS: Calcium 9.5 mg/dL (8.6-10.3); Creatinine, Serum 1.01 mg/dL (0.67-1.17); Magnesium 2.4 mg/dL (1.9-2.7); Potassium 4.7 mmol/L (3.5-5.0)
[2023-07-31] MEDS: Heparin 5000 UNITS/ML 1 mL VIAL SUBCUT SCH ×3 (05:02→21:16)
[2023-07-31 05:20] LABS: RBC Morphology Normal (Normal)
[2023-07-31 05:21] LABS: ABS Basophils 0.1 10^3/uL (0.0-0.1); ABS Eosinophils 0.1 10^3/uL (0.0-0.5); ABS Lymphocytes 1.4 10^3/uL (1.0-4.8); ABS Monocytes 0.6 10^3/uL (0.0-1.1); ABS Neutrophils 7.3 10^3/uL (1.5-7.6); ABS Nucleated RBC 0.02 10^3/ul; Lymphocyte % 14.7 %; Nucleated Red Blood Cells % 0.2 /100 WBC (0.0-0.4)
[2023-07-31] MEDS: carBAMazepine ER 100mg TAB PO SCH ×2 (07:52→21:25)
[2023-07-31] MEDS: Ammonium Lactate 12% 1 APPLIC TUBE TOPICAL SCH ×2 (13:36→21:21)
[2023-07-31] MEDS ORDERED: Senna/Docusate 8.6/50 mg (NF) TAB PO SCH (21:00)
[2023-07-31] MEDS ORDERED: Senna TAB 8.6 mg TAB ONE (21:24)
[2023-07-31] MEDS: Polyethylene Glycol 3350 17 GM PACKET PO PRN (21:25)
[2023-07-31] MEDS: Senna TAB 8.6 mg TAB PO SCH (21:37)
[2023-08-01] MEDS: Heparin 5000 UNITS/ML 1 mL VIAL SUBCUT SCH ×3 (05:48→21:18)
[2023-08-01] MEDS: carBAMazepine ER 100mg TAB PO SCH ×2 (08:41→21:17)
[2023-08-01] MEDS: Polyethylene Glycol 3350 17 GM PACKET PO PRN (08:41)
[2023-08-01] MEDS: Ammonium Lactate 12% 1 APPLIC TUBE TOPICAL SCH ×2 (14:22→21:18)
[2023-08-01] MEDS: Senna TAB 8.6 mg TAB PO SCH (21:18)
[2023-08-02] MEDS: Heparin 5000 UNITS/ML 1 mL VIAL SUBCUT SCH (05:15)
[2023-08-02] MEDS: carBAMazepine ER 100mg TAB PO SCH (09:29)
[2023-08-02] MEDS: Ammonium Lactate 12% 1 APPLIC TUBE TOPICAL SCH (09:45)
[2023-08-02 14:22] VITALS: BP 153/66
== END 2023-08-02 15:10 | DRG 981 ==
LOC: ED 18:59 → SUATTDRO 23:52 → EDHOLD 23:52 → ICU 07-21 01:45 → MEDTELE 07-21 17:53 → ICU 07-27 15:48
PROVIDERS: ADMIT Internal Medicine Critical Care Medicine; ATTEND Internal Medicine Critical Care Medicine